=== PATIENT | female | born 1990 | race Caucasian/White ===

== ENCOUNTER 2017-04-04 05:40 | Day surgery (SDC) | payer BC ==
[~2017-04-04] VITALS: Ht 175.3 cm; Wt 111.1 kg
[~2017-04-04 05:40] MED LIST: NORCO 5-325 TA1 EACH PO
--- NOTE | 2017-04-04 08:24 | NUR ---
04/04/17 0823 Melly Kelley TO PACU, AWAKENS TO LOUD VOICE. FALLS ALSEEP QUICKLY. SNORING NOTED.
[2017-04-04] MEDS ORDERED: IBUPROFEN600 MG PO (08:33)
[2017-04-04] MEDS ORDERED: MAPAP325 MG PO (08:34)
[2017-04-04] MEDS ORDERED: OXYCODON-ACETA1 EAC2 PO (08:34)
--- NOTE | 2017-04-04 12:15 | NUR ---
LE 1030 PT AMB WELL, VOIDS 200ML. HAS EATEN EGGS AND TOAST. DRANK 300MLS WATER. WANTS TO GO HOME.
--- NOTE | 2017-04-04 14:24 | NUR ---
PT NERVOUS ABOUT SURGERY-HER FIRST. SPENT TIME WITH HER EXPLAINING WHAT SHE CAN EXPECT TO HAPPEN TODAY. HER DAD WAS IN WITH HER. HAD PRAYER WITH PT, AND WE FINISHED, COMFORT BONILLA CAME TO GIVE HER MEDS TO HELP EASE HER TENSION. WILL FOLLOW NEEDED
--- NOTE | 2017-04-05 07:49 | OR ---
[facility] [address], [place] [address] Signed DATE OF OPERATION: 04/04/2017 SURGEON: Rebecca Carlson MD PREOPERATIVE DIAGNOSES: 1. Unifocal pilonidal sinus with persistent purulent drainage. 2. Obesity. POSTOPERATIVE DIAGNOSES: 1. Midline xztmiek-lc-gbu without associated pilonidal disease. 2. Morbid obesity. PROCEDURES: 1. Exam under anesthesia. 2. Midline anal fistulotomy with placement of yellow vessel loop seton. 3. Anal biopsy. ANESTHESIA: Caudal block (Rebecca Perez) and general endotracheal anesthetic, and local 10 mL of 0.25% Marcaine with epinephrine. INDICATION: This 27-year-old obese white woman is the patient of NICOLE Rashid and seen initially for "perirectal abscess." Her treatment had included sitz baths and cortisone ointment and subsequently clindamycin antibiotic. 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 She had no associated perirectal abscess that was noted. Onset of this problem was December 26, 2016. Her spontaneous drainage was more consistent with a pilonidal sinus than a rukzxya-bz-epl and although the small defect was at least 4 cm from the anal verge, it was just at the tip of the coccyx as well. It clinically appears likely to be a pilonidal sinus. Re-evaluation showed continued episodic purulent drainage from it. She is admitted at this time to undergo an exam under anesthesia and probable pilonidal sinus excision, though other indicated procedures will be considered as well. The risks of bleeding, infection, sphincter problems, need for prolonged wound care, and so forth were all reviewed with the patient and her family. They understand and wished to proceed. FINDINGS: The defect of the skin was in the exact midline. Probing of the site, however, revealed that it was a sxyjcru-fk-zuv after all, not a pilonidal sinus. Anal fistulotomy was Electronically Signed By: REBECCA CARLSON MD 04/05/17 0749 PATIENT NAME: TERESO WHYTE OPERATIVE REPORT DATE OF : 89 PHYSICIAN: REBECCA CARLSON MD REPORT #: [id number] REPORT IS CONFIDENTIAL AND NOT TO BE RELEASED WITHOUT AUTHORIZATION [facility] [address] [place] [id number] Signed undertaken to the level of the sphincter muscle itself. Given its posterior position, completion fistulotomy was not undertaken at this time, so as to avoid a keyhole defect. Instead, a yellow vessel loop seton was placed anticipating future division of the tissue. DESCRIPTION OF PROCEDURE: The patient was brought to the operating room, given a saddle block and then a general endotracheal anesthetic and placed in the prone nikki-knife position. The buttocks were taped apart. Photographs were taken. The defect of the site was about 4 cm from the anal verge itself and directly in the midline. It was slightly caudad to the tip of the coccyx. Her obesity somewhat distorted the anatomy initially. The buttocks were taped apart and prepared with Betadine solution and draped sterilely. Probing of the defect showed there to be purulent drainage and without any resistance at all, the probe passed to the anal canal in the midline and directly out an area of the anal crypt. This did not represent a pilonidal cyst or sinus after all. Examination of the anorectum was undertaken with anal retractors showing normal-appearing rectal mucosa. The fistula appeared to go relatively superficially including the external sphincter muscle, but given its midline posterior position, it was deemed inadvisable to do complete fistulotomy at this time. On that basis, fistulotomy was undertaken with electrocautery directly over the probe to that point of the sphincter muscle and it was then encircled with the yellow vessel loop. The base of the fistulous tract had granulation tissue and was cauterized and curetted. A 20 mL of 0.25% Marcaine was injected locally. The anal retractor was manipulated further and a segment of rectal mucosa was elevated, and excised and passed for pathology to assess for inflammatory bowel disease though it appeared grossly normal. Hemostasis was found to be complete. A peripad was applied as were stabilizing shorts. She was placed in the supine position, subsequently extubated and transferred to recovery in good condition. BLOOD LOSS: Minimal. COMPLICATIONS: None. Electronically Signed By: REBECCA CARLSON MD 04/05/17 0749 PATIENT NAME: TERESO WHYTE OPERATIVE REPORT DATE OF : 89 PHYSICIAN: REBECCA CARLSON MD REPORT #: [id number] REPORT IS CONFIDENTIAL AND NOT TO BE RELEASED WITHOUT AUTHORIZATION [address] [place], [place] [address] Signed MD RENEE Bowie/TRINIL /[id number] cc: NICOLE Solitario Electronically Signed By: REBECCA CARLSON MD 04/05/17 0749 PATIENT NAME: TERESO WHYTE OPERATIVE REPORT DATE OF : 89 PHYSICIAN: REBECCA CARLSON MD REPORT #: [id number] REPORT IS CONFIDENTIAL AND NOT TO BE RELEASED WITHOUT AUTHORIZATION
== END 2017-04-04 10:40 | disposition home or self-care (01) ==
LOC: DS 05:40
PROVIDERS: Surgery
PROC: 0DBP0ZX Excision of Rectum, Open Approach, Diagnostic (ICD-10-PCS; 2017-04-04)
PROC: 0D9Q0ZZ Drainage of Anus, Open Approach (ICD-10-PCS; principal; 2017-04-04 06:45)
DX: K62.1 Rectal polyp (principal); E66.01 Morbid (severe) obesity due to excess calories; Z90.89 Acquired absence of other organs
CPT/HCPCS: 00902; J0330; J0694; J1100; J1885; J2250; J2405; J2704; J2765; J3010; J7120

== ENCOUNTER 2017-06-25 05:54 | Day surgery (SDC) | payer BC ==
[~2017-06-25] VITALS: Ht 175.3 cm; Wt 117.9 kg
[~2017-06-25 05:54] MED LIST changes: +IBUPROFEN600 MG PO; +MAPAP325 MG PO; +OXYCODON-ACETA1 EAC2 PO
[2017-06-25] MEDS ORDERED: DEPO-PROVE150 MG/1 M IM (06:15)
--- NOTE | 2017-06-25 08:08 | NUR ---
06/25/17 0808 Becki Weiner PT ARRIVED TO PACU. MAINTAINING OWN AIRWAY.
[2017-06-25] MEDS ORDERED: HYDROMORPHONE HC4 MG PO (08:20)
[2017-06-25] MEDS ORDERED: MAPAP325 MG PO (08:20)
--- NOTE | 2017-06-25 09:50 | OR ---
[facility] [address], [place] [address] Signed DATE OF OPERATION: 06/25/2017 SURGEON: Rebecca Carlson MD PREOPERATIVE DIAGNOSIS: Posterior midline wkgwvkq-kp-kuu with seton. POSTOPERATIVE DIAGNOSIS: Posterior midline srgenze-vr-iec with seton. PROCEDURE: Anal fistulotomy and curettage. ANESTHESIA: Saddle block with local Marcaine 0.25% of 10 mL and monitored anesthesia care. ANESTHESIOLOGIST: Rufus Cespedes CRNA. INDICATIONS: This 27-year-old obese white woman. Patient of Jillian Nava and was thought by me to have a pilonidal problem with abscess drainage. She went to operation several weeks ago for pilonidal cystectomy, but was found in fact to have a midline posterior pjnjgpa-vm-zlp. This was relatively deep and obviously an atypical place for such a finding. Fistulotomy was taken down to the sphincter complex and a seton was placed. In the meantime, the area of initial fistulotomy has been allowed to heal so as to avoid a keyhole deformity typical of excessively bold fistulotomy in the midline. She recently underwent colonoscopy by me, which showed no evidence of inflammatory bowel disease, which would account for her aberrant position of the hdxabkl-hr-htz. Silver nitrate cautery was used for exuberant granulation in the fistulous tract that had been divided already with a yellow vessel loop seton still in place around sphincter muscle. The tissue was now healed well except obviously for the area of the seton and definitive division of this tissue, which includes some sphincter muscle is anticipated now that fibrosis of surrounding sphincter muscle has occurred. The risks of bleeding, infection, variable degrees of incontinence, recurrent disease and so forth were reviewed in detail with the patient and her father. She understood and wished to proceed with definitive fistulotomy at this time. FINDINGS: Electronically Signed By: REBECCA CARLSON MD 06/25/17 0950 PATIENT NAME: TERESO WHYTE OPERATIVE REPORT DATE OF : 89 PHYSICIAN: REBECCA CARLSON MD REPORT #: [id number] REPORT IS CONFIDENTIAL AND NOT TO BE RELEASED WITHOUT AUTHORIZATION [facility] [address] [place], [place] [address] Signed The tract external to the fistula with the seton in place was well-healed overall. Division of the tissue beneath the seton allow for removal of the seton completely. Granulation associated with this area was cauterized and operation went without problem. DESCRIPTION OF PROCEDURE: The patient was brought to the operating room after undergoing saddle block anesthesia in the preanesthesia area, placed in the prone nikki-knife position. Preoperative antibiotic Ancef was given. Sequential compression device stockings used and heparin subcutaneously administered. The buttocks were taped apart after positioning into the prone nikki-knife position and intravenous sedation administration. The area was prepared with a DuraPrep solution and draped sterilely. Elevation of the seton showed the soft tissue including sphincter muscle in the posterior midline to have good fibrosis laterally. Division of the soft tissue was undertaken with electrocautery. The seton was removed. Beneath this area, the well-formed fistulous tract was cauterized of its exuberant granulation tissue and this cautery extended externally a bit into the previous site. A 10 mL of 0.25% Marcaine was injected locally. Bacitracin was applied to the wound. A peripad was applied and the patient was positioned in the supine position on the stretcher and taken to recovery room in good condition. BLOOD LOSS: Minimal. COMPLICATIONS: None. MD RENEE Bowie/TRINIL /[id number] cc: NICOLE Solitario Electronically Signed By: REBECCA CARLSON MD 06/25/17 0950 PATIENT NAME: TERESO WHYTE MARIA DE JESUS OPERATIVE REPORT DATE OF : 89 PHYSICIAN: REBECCA CARLSON MD REPORT #: [id number] REPORT IS CONFIDENTIAL AND NOT TO BE RELEASED WITHOUT AUTHORIZATION
== END 2017-06-25 09:00 | disposition home or self-care (01) ==
LOC: DS 05:54
PROVIDERS: Surgery
PROC: 0D9R0ZZ Drainage of Anal Sphincter, Open Approach (ICD-10-PCS; principal; 2017-06-25 06:45)
DX: K60.3 Anal fistula (principal); Z88.8 Allergy status to other drugs, medicaments and biological substances; Z90.89 Acquired absence of other organs; Z98.890 Other specified postprocedural states
CPT/HCPCS: 00902; J0690; J2250; J2704; J2765; J3010